=== PATIENT | female | born 1995 | race Caucasian/White ===

== ENCOUNTER 2018-11-15 04:39 | Emergency (ER) | payer MEDICAID ==
[2018-11-15 05:17] LABS: MUDS CUTOFF CONCENTRATIONS CUTOFF CONC BELOW:
[2018-11-15 05:20] LABS: BILIRUBIN,URINE NEGATIVE (NEGATIVE); GLUCOSE, URINE (UA) >=1000 mg/dL (NEGATIVE); KETONES,URINE (UA) NEGATIVE (NEGATIVE); LEUKOCYTE ESTERASE, URINE SMALL (NEGATIVE); NITRITE,URINE NEGATIVE (NEGATIVE); OCCULT BLOOD,URINE NEGATIVE (NEGATIVE); PROTEIN,URINE NEGATIVE (NEGATIVE); UROBILINOGEN,URINE 0.2 (NORMAL) E.U./dL (NORMAL)
[2018-11-15 05:21] LABS: CLARITY,URINE CLEAR (CLEAR); HCG UR QUAL NEGATIVE
--- NOTE | 2018-11-15 05:21 | ED Physician Documentation ---
PD [facility] MHE - Stated complaint Stated Complaint: MHE - Chief complaint Chief Complaint: MHE - History obtained from History obtained from: Patient - History of Present Illness Primary symptom: Suicidal ideation Similar symptoms before: Has not had sx before Recently seen: Not recently seen - Additional information Additional information: patient was at [place] and was texting to a crisis line; his texts included suicidal threats (specifically that he was going to jump off the bridge). Staff at crisis line contacted police, who were able to locate patient and, after discussion with patient, determined that he was a danger to self and brought patient to ED for evaluation. Patient confirms this information in HPI. He says he has been increasingly depressed over past few months due to the of his dog, a breakup with his boyfriend, and loss of his job. Review of Systems Cardiac: reports: Reviewed and negative Respiratory: reports: Reviewed and negative GI: reports: Reviewed and negative Psychiatric: reports: Depressed, Suicidal. denies: Homicidal, Hallucinations, Delusions, Anxiety PD PAST MEDICAL HISTORY - Past Medical History Past Medical History: No - Past Surgical History HEENT: Tonsil/Adenoidectomy - Present Medications Home Medications: Ambulatory Orders Medication Instructions Recorded Confirmed No Known Home Medications 11/15/18 11/15/18 - Allergies Allergies/Adverse Reactions: Allergies Allergy/AdvReac Type Severity Reaction Status Date / Time peanut Allergy Anaphylaxis Verified 11/15/18 04:51 - Social History Does the pt smoke?: No Smoking Status: Never smoker Does the pt drink ETOH?: Yes Does the pt have substance abuse?: No - Immunizations Immunizations are current?: Yes - POLST Patient has POLST: No PD ED PE NORMAL - Vitals Vital signs reviewed: Yes - General General: Alert and oriented X 3, No acute distress, Well developed/nourished - HEENT HEENT: PERRL, EOMI - Cardiac Cardiac: RRR, No murmur - Respiratory Respiratory: No respiratory distress, Clear bilaterally - Neuro Neuro: Alert and oriented X 3 Eye Opening: Spontaneous Motor: Obeys Commands Verbal: Oriented GCS Score: 15 - Psych Psych: Normal mood, Normal affect, Other (pleasant, calm, cooperative) Results - Vitals Vitals: Vital Signs - 24 hr 11/15/18 11/15/18 04:43 13:50 Temperature 36.1 C L Heart Rate 87 87 Respiratory 18 16 Rate Blood Pressure 140/83 H 143/76 H O2 Saturation 100 99 Oxygen O2 Source Room air - Labs Labs: Laboratory Tests 11/15/18 11/15/18 11/15/18 05:05 05:05 05:05 WBC RBC Hgb Hct MCV MCH MCHC RDW Plt Count MPV Neut # (Auto) Lymph # (Auto) [place] # (Auto) Eos # (Auto) Baso # (Auto) Absolute Nucleated RBC Nucleated RBC % Sodium Potassium Chloride Carbon Dioxide Anion Gap BUN Creatinine Estimated GFR (MDRD) Glucose Glycated Hemoglobin Estim Average Glucose Calcium Urine Color LT. YELLOW Urine Clarity CLEAR Urine pH 6.0 Ur Specific [place] 1.020 1.020 Urine Protein NEGATIVE Urine Glucose (UA) >=1000 H Urine Ketones NEGATIVE Urine Occult Blood NEGATIVE Urine Nitrite NEGATIVE Urine Bilirubin NEGATIVE Urine Urobilinogen 0.2 (NORMAL) Ur Leukocyte Esterase SMALL H Urine RBC 0-5 Urine WBC 4-5 Ur Squamous Epith Cells MANY Squamous H Urine Bacteria Rare Ur Microscopic Review INDICATED Urine Culture Comments NOT INDICATED Urine HCG, Qual NEGATIVE Salicylates Urine Opiates Screen NEGATIVE Ur Oxycodone Screen NEGATIVE Urine Methadone Screen NEGATIVE Ur Propoxyphene Screen NEGATIVE Acetaminophen Ur Barbiturates Screen NEGATIVE Ur Tricyclics Screen NEGATIVE Ur Phencyclidine Scrn NEGATIVE Ur Amphetamine Screen NEGATIVE U Methamphetamines Scrn NEGATIVE U Benzodiazepines Scrn NEGATIVE Urine Cocaine Screen NEGATIVE U Cannabinoids Screen NEGATIVE Ethyl Alcohol 11/15/18 11/15/18 11/15/18 05:55 05:55 05:55 WBC 9.1 RBC 4.64 Hgb 13.1 Hct 38.3 MCV 82.5 MCH 28.2 MCHC 34.2 RDW 13.4 Plt Count 267 MPV 8.4 Neut # (Auto) 6.7 H Lymph # (Auto) 1.8 [place] # (Auto) 0.5 Eos # (Auto) 0.0 Baso # (Auto) 0.0 Absolute Nucleated RBC 0.01 Nucleated RBC % 0.1 Sodium 137 Potassium 3.6 Chloride 104 Carbon Dioxide 23 Anion Gap 10.0 BUN 7 Creatinine 0.4 Estimated GFR (MDRD) 196 Glucose 215 H Glycated Hemoglobin 7.7 H Estim Average Glucose 174 H Calcium 9.0 Urine Color Urine Clarity Urine pH Ur Specific [place] Urine Protein Urine Glucose (UA) Urine Ketones Urine Occult Blood Urine Nitrite Urine Bilirubin Urine Urobilinogen Ur Leukocyte Esterase Urine RBC Urine WBC Ur Squamous Epith Cells Urine Bacteria Ur Microscopic Review Urine Culture Comments Urine HCG, Qual Salicylates < 6.0 Urine Opiates Screen Ur Oxycodone Screen Urine Methadone Screen Ur Propoxyphene Screen Acetaminophen < 10 L Ur Barbiturates Screen Ur Tricyclics Screen Ur Phencyclidine Scrn Ur Amphetamine Screen U Methamphetamines Scrn U Benzodiazepines Scrn Urine Cocaine Screen U Cannabinoids Screen Ethyl Alcohol < 5.0 PD MEDICAL DECISION MAKING - ED course Complexity details: reviewed results, re-evaluated patient, considered differential, d/w patient ED course: SW consulted in AM. case signed out to Dr. Juarez at end of my shift (7 AM) Departure - Departure Disposition: Home, Self Care Clinical Impression: Suicidal ideation, Hyperglycemia Condition: Good Instructions: ED Depression Follow-Up: [facility] [Provider Group] [facility] [Provider Group] Comments: The mental health specialist feels you are now safe to go home The [facility] program will be contacting you for ongoing support. You have the phone number for Jadekelli Ai in case you change your mind about wanting inpatient care And you have the number for the crisis line. Of course return to the ER if worse. Also you blood sugar was a little bit high today. I would like you to follow up with [facility] or [facility] for further evaluation to see if you might be developing diabetes - pleas make an appointment to be seen within the next 2 weeks Discharge Date/Time: 11/15/18 13:50
[2018-11-15 05:30] LABS: AMPHETAMINE SCREEN,URINE NEGATIVE (NEGATIVE); BACTERIA,URINE Rare /HPF (None Seen); BENZODIAZEPINES SCREEN, URINE NEGATIVE (NEGATIVE); COCAINE SCREEN URINE NEGATIVE (NEGATIVE); METHADONE SCREEN, URINE NEGATIVE (NEGATIVE); METHAMPHETAMINES SCREEN, URINE NEGATIVE (NEGATIVE); OPIATE SCREEN, URINE NEGATIVE (NEGATIVE); OXYCODONE SCREEN, URINE NEGATIVE (NEGATIVE); PROPOXYPHENE SCREEN, URINE NEGATIVE (NEGATIVE); RBC,URINE 0-5 /HPF (0-5); SQUAMOUS EPITHELIAL CELL,UR MANY Squamous (<= Few); TRICYCLIC ANTIDEPRESSANT,URINE NEGATIVE (NEGATIVE)
[2018-11-15 06:09] LABS: BASOPHILS % (AUTO) 0.5 %; EOSINOPHILS % (AUTO) 0.5 %; HGB - HEMOGLOBIN 13.1 g/dL (12.0-16.0); LYMPHOCYTES # (AUTO) 1.8 10^3/uL (1.5-3.5); LYMPHOCYTES % (AUTO) 19.7 %; MEAN CORPUSCULAR HEMOGLOBIN 28.2 pg (27.0-31.0); MEAN CORPUSCULAR HGB CONC 34.2 g/dL (32.0-36.0); MEAN CORPUSCULAR VOLUME 82.5 fL (81.0-99.0); MEAN PLATELET VOLUME 8.4 fL (7.9-10.8); MONOCYTES # (AUTO) 0.5 10^3/uL (0.0-1.0); MONOCYTES % (AUTO) 5.1 %; NEUTROPHILS # (AUTO) 6.7 10^3/uL (1.5-6.6); NEUTROPHILS % (AUTO) 74.2 %; PLT - PLATELET COUNT 267 10^3/uL (130-450); RED BLOOD COUNT 4.64 10^6/uL (4.20-5.40); RED CELL DISTRIBUTION WIDTH 13.4 % (12.0-15.0); WHITE BLOOD COUNT 9.1 x10^3/uL (4.8-10.8)
[2018-11-15 06:22] LABS: ACETAMINOPHEN < 10 ug/mL (10-30); BUN - BLOOD UREA NITROGEN 7 mg/dL (6-20); CARBON DIOXIDE - CO2 23 mmol/L (21-32); CHLORIDE 104 mmol/L (101-111); CREATININE 0.4 mg/dL (0.4-1.0); GFR - MDRD 196 (>89); GLUCOSE 215 mg/dL (70-100); SALICYLATE < 6.0 mg/dL; SODIUM 137 mmol/L (135-145)
--- NOTE | 2018-11-15 07:12 | ED Physician Documentation ---
History of Present Illness - Stated complaint Stated Complaint: MHE - Chief complaint Chief Complaint: MHE PD PAST MEDICAL HISTORY - Past Medical History Past Medical History: No - Past Surgical History HEENT: Tonsil/Adenoidectomy - Present Medications Home Medications: Ambulatory Orders Medication Instructions Recorded Confirmed No Known Home Medications 11/15/18 11/15/18 - Allergies Allergies/Adverse Reactions: Allergies Allergy/AdvReac Type Severity Reaction Status Date / Time peanut Allergy Anaphylaxis Verified 11/15/18 04:51 - Social History Does the pt smoke?: No Smoking Status: Never smoker Does the pt drink ETOH?: Yes Does the pt have substance abuse?: No - Immunizations Immunizations are current?: Yes - POLST Patient has POLST: No Results - Vitals Vitals: Vital Signs - 24 hr 11/15/18 04:43 Temperature 36.1 C L Heart Rate 87 Respiratory 18 Rate Blood Pressure 140/83 H O2 Saturation 100 Oxygen O2 Source Room air - Labs Labs: Laboratory Tests 11/15/18 11/15/18 11/15/18 05:05 05:05 05:05 WBC RBC Hgb Hct MCV MCH MCHC RDW Plt Count MPV Neut # (Auto) Lymph # (Auto) [place] # (Auto) Eos # (Auto) Baso # (Auto) Absolute Nucleated RBC Nucleated RBC % Sodium Potassium Chloride Carbon Dioxide Anion Gap BUN Creatinine Estimated GFR (MDRD) Glucose Glycated Hemoglobin Estim Average Glucose Calcium Urine Color LT. YELLOW Urine Clarity CLEAR Urine pH 6.0 Ur Specific [place] 1.020 1.020 Urine Protein NEGATIVE Urine Glucose (UA) >=1000 H Urine Ketones NEGATIVE Urine Occult Blood NEGATIVE Urine Nitrite NEGATIVE Urine Bilirubin NEGATIVE Urine Urobilinogen 0.2 (NORMAL) Ur Leukocyte Esterase SMALL H Urine RBC 0-5 Urine WBC 4-5 Ur Squamous Epith Cells MANY Squamous H Urine Bacteria Rare Ur Microscopic Review INDICATED Urine Culture Comments NOT INDICATED Urine HCG, Qual NEGATIVE Salicylates Urine Opiates Screen NEGATIVE Ur Oxycodone Screen NEGATIVE Urine Methadone Screen NEGATIVE Ur Propoxyphene Screen NEGATIVE Acetaminophen Ur Barbiturates Screen NEGATIVE Ur Tricyclics Screen NEGATIVE Ur Phencyclidine Scrn NEGATIVE Ur Amphetamine Screen NEGATIVE U Methamphetamines Scrn NEGATIVE U Benzodiazepines Scrn NEGATIVE Urine Cocaine Screen NEGATIVE U Cannabinoids Screen NEGATIVE Ethyl Alcohol 11/15/18 11/15/18 11/15/18 05:55 05:55 05:55 WBC 9.1 RBC 4.64 Hgb 13.1 Hct 38.3 MCV 82.5 MCH 28.2 MCHC 34.2 RDW 13.4 Plt Count 267 MPV 8.4 Neut # (Auto) 6.7 H Lymph # (Auto) 1.8 [place] # (Auto) 0.5 Eos # (Auto) 0.0 Baso # (Auto) 0.0 Absolute Nucleated RBC 0.01 Nucleated RBC % 0.1 Sodium 137 Potassium 3.6 Chloride 104 Carbon Dioxide 23 Anion Gap 10.0 BUN 7 Creatinine 0.4 Estimated GFR (MDRD) 196 Glucose 215 H Glycated Hemoglobin 7.7 H Estim Average Glucose 174 H Calcium 9.0 Urine Color Urine Clarity Urine pH Ur Specific [place] Urine Protein Urine Glucose (UA) Urine Ketones Urine Occult Blood Urine Nitrite Urine Bilirubin Urine Urobilinogen Ur Leukocyte Esterase Urine RBC Urine WBC Ur Squamous Epith Cells Urine Bacteria Ur Microscopic Review Urine Culture Comments Urine HCG, Qual Salicylates < 6.0 Urine Opiates Screen Ur Oxycodone Screen Urine Methadone Screen Ur Propoxyphene Screen Acetaminophen < 10 L Ur Barbiturates Screen Ur Tricyclics Screen Ur Phencyclidine Scrn Ur Amphetamine Screen U Methamphetamines Scrn U Benzodiazepines Scrn Urine Cocaine Screen U Cannabinoids Screen Ethyl Alcohol < 5.0 PD MEDICAL DECISION MAKING - ED course ED course: assumed care 7 AM 23 bio female identifies male suicidal ideation with plan [place] in [place] police with [facility] no homicidal ideations no hallucinations numerous recent losses (boyfriend deployed lost dog lost car lost job) otherwise well recently no fever cough NVD 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 except blood sugar 215 and large glucose in urine with no hx of diabetes if not on steroids etc to cause same would suggest start metformin 500 BID and close PMD follow up but would not preclude inpt mental health care waiting for SW consult seen by RICHARD but no longer wanted inpt care so then seen by BRENDA GUTIERREZ does not feel pt need invol placement at this time, he does not want to go voluntary at this time, has been referred to [facility] for home visit, DCR spoke to pts friend who will provide support, has crisis and number for [place] if he changes his mind, also to be added to parents health insurance A1C only 7.7 - will refer to PMD but not start meds at this time Departure - Departure Disposition: 01 Home, Self Care Clinical Impression: Suicidal ideation, Hyperglycemia Condition: Good Instructions: ED Depression Follow-Up: [facility] [Provider Group] [facility] [Provider Group] Comments: The mental health specialist feels you are now safe to go home The [facility] program will be contacting you for ongoing support. You have the phone number for Clemente Cloud in case you change your mind about wanting inpatient care And you have the number for the crisis line. Of course return to the ER if worse. Also you blood sugar was a little bit high today. I would like you to follow up with [facility] or [facility] for further evaluation to see if you might be developing diabetes - pleas make an appointment to be seen within the next 2 weeks
[2018-11-15 08:24] LABS: HB2 TOTAL 13.8 g/dL; HEMOGLOBIN A1C 0.84 g/dL; HEMOGLOBIN A1C % 7.7 % (4.6-6.2)
[2018-11-15] MEDS ORDERED: ACETAMINOPHEN 325 MG TABLET PO STA (12:44)
[2018-11-15 13:51] VITALS: BP 143/76
== END 2018-11-15 13:50 | disposition home or self-care (01) ==
LOC: ED 04:39
DX: R45.851 Suicidal ideations (principal); R73.9 Hyperglycemia, unspecified; F64.9 Gender identity disorder, unspecified
CPT/HCPCS: 36415; 80048; 80306; 80307; 80320; 80329; 81001; 81025; 83036; 85025; 99283; 99284; A9270; 81003; 87086

== ENCOUNTER 2019-06-01 03:25 | Emergency (ER) | payer OTHER, MEDICAID ==
--- NOTE | 2019-06-01 03:47 | ED Physician Documentation ---
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 He recognized he had cut deep enough to require stitches and thus comes to ED for repair. He denies suicidal intent. Review of Systems Skin: reports: Laceration (s) Neurologic: denies: Focal weakness, Numbness Psychiatric: denies: Suicidal PD PAST MEDICAL HISTORY - Past Medical History Past Medical History: Yes Psych: Depression - Past Surgical History HEENT: Tonsil/Adenoidectomy - Present Medications Home Medications: Ambulatory Orders Medication Instructions Recorded Confirmed Sertraline HCl [Zoloft] 100 mg PO DAILY 06/01/19 06/01/19 - Allergies Allergies/Adverse Reactions: Allergies Allergy/AdvReac Type Severity Reaction Status Date / Time peanut Allergy Anaphylaxis Verified 06/01/19 03:35 - Living Situation Living Arrangement: reports: At home - Social History Does the pt smoke?: No Smoking Status: Never smoker Does the pt drink ETOH?: Yes Does the pt have substance abuse?: No - Immunizations Immunizations are current?: Yes - POLST Patient has POLST: No PD ED PE NORMAL - Vitals Vital signs reviewed: Yes - General General: Alert and oriented X 3, No acute distress, Well developed/nourished - Neuro Neuro: No motor deficit, No sensory deficit PD ED PE EXPANDED - Extremities NEMESIO UE/Hands Visual: 1 - laceration (7 cm length laceration with exposed adipose tissue. multiple old (healing) linear lacerations on left forearm) Results - Vitals Vitals: Oxygen O2 Source Room air - Labs Labs: Laboratory Tests 06/01/19 06/01/19 06/01/19 03:53 03:53 03:53 WBC 7.1 RBC 4.43 Hgb 11.8 L Hct 36.7 L MCV 82.8 MCH 26.6 L MCHC 32.2 RDW 13.6 Plt Count 285 MPV 10.4 Neut # (Auto) 4.4 Lymph # (Auto) 2.1 [place] # (Auto) 0.5 Eos # (Auto) 0.1 Baso # (Auto) 0.0 Absolute Nucleated RBC 0.00 Nucleated RBC % 0.0 Sodium 138 Potassium 3.6 Chloride 104 Carbon Dioxide 23 Anion Gap 11.0 BUN 14 Creatinine 0.6 Estimated GFR (MDRD) 122 Glucose 182 H Calcium 9.3 TSH 3.84 Urine Color Urine Clarity Urine pH Ur Specific [place] Urine Protein Urine Glucose (UA) Urine Ketones Urine Occult Blood Urine Nitrite Urine Bilirubin Urine Urobilinogen Ur Leukocyte Esterase Ur Microscopic Review Urine Culture Comments Urine HCG, Qual Salicylates < 4.0 Urine Opiates Screen Ur Oxycodone Screen Urine Methadone Screen Ur Propoxyphene Screen Acetaminophen < 10 L Ur Barbiturates Screen Ur Tricyclics Screen Ur Phencyclidine Scrn Ur Amphetamine Screen U Methamphetamines Scrn U Benzodiazepines Scrn Urine Cocaine Screen U Cannabinoids Screen Ethyl Alcohol < 5.0 06/01/19 06/01/19 04:35 04:35 WBC RBC Hgb Hct MCV MCH MCHC RDW Plt Count MPV Neut # (Auto) Lymph # (Auto) [place] # (Auto) Eos # (Auto) Baso # (Auto) Absolute Nucleated RBC Nucleated RBC % Sodium Potassium Chloride Carbon Dioxide Anion Gap BUN Creatinine Estimated GFR (MDRD) Glucose Calcium TSH Urine Color YELLOW Urine Clarity CLEAR Urine pH 6.0 Ur Specific [place] 1.010 Urine Protein NEGATIVE Urine Glucose (UA) NEGATIVE Urine Ketones NEGATIVE Urine Occult Blood NEGATIVE Urine Nitrite NEGATIVE Urine Bilirubin NEGATIVE Urine Urobilinogen 0.2 (NORMAL) Ur Leukocyte Esterase NEGATIVE Ur Microscopic Review NOT INDICATED Urine Culture Comments NOT INDICATED Urine HCG, Qual NEGATIVE Salicylates Urine Opiates Screen NEGATIVE Ur Oxycodone Screen NEGATIVE Urine Methadone Screen NEGATIVE Ur Propoxyphene Screen NEGATIVE Acetaminophen Ur Barbiturates Screen NEGATIVE Ur Tricyclics Screen NEGATIVE Ur Phencyclidine Scrn NEGATIVE Ur Amphetamine Screen NEGATIVE U Methamphetamines Scrn NEGATIVE U Benzodiazepines Scrn NEGATIVE Urine Cocaine Screen NEGATIVE U Cannabinoids Screen NEGATIVE Ethyl Alcohol Procedures - Laceration (location) Upper extremity left Ventral Length in cm: 7 Wound type: Linear Neurovascular status: Sensory intact, Motor intact, Vascular intact Tendon involvement: Tendon intact Anesthesia: Lidocaine 1% Wound Preparation: Hibiclens, Wound explored Skin layer closure: Randy Other: Patient tolerated well, No complications, Neurovascular intact, Dressing applied, Tetanus UTD Complexity: Simple PD MEDICAL DECISION MAKING - ED course Complexity details: reviewed old records, reviewed results, re-evaluated patient, considered differential, d/w patient ED course: Calm, cooperative, pleasant during ED stay. He says he has been dealing with d epression for many months and that elsy's self-injury was not due to acute depression or suicidal thoughts or intent. He has multiple old/healing linear lacerations to his left FA, indicating previous "cutting" behavior. I offered SW/MHE services, which he declines. He says he feels comfortable going home and does not have any suicidal thoughts at this time. Departure - Departure Disposition: 01 Home, Self Care Clinical Impression: Laceration Condition: Good Health Concerns: left arm laceration Plan of Treatment: wound care, staple removal in 7-10 days Care Goals: healing of laceration Assessment: see diagnosis Instructions: ED Laceration Ext Sutr Stap Tape Comments: Follow up with your primary care provider in 7-10 days for removal of the randy. Discharge Date/Time: 06/01/19 05:31
[2019-06-01 04:09] LABS: BASOPHILS % (AUTO) 0.3 %; EOSINOPHILS # (AUTO) 0.1 10^3/uL (0.0-0.7); EOSINOPHILS % (AUTO) 1.8 %; HGB - HEMOGLOBIN 11.8 g/dL (12.0-16.0); LYMPHOCYTES # (AUTO) 2.1 10^3/uL (1.5-3.5); LYMPHOCYTES % (AUTO) 29.1 %; MEAN CORPUSCULAR HEMOGLOBIN 26.6 pg (27.0-31.0); MEAN CORPUSCULAR HGB CONC 32.2 g/dL (32.0-36.0); MEAN CORPUSCULAR VOLUME 82.8 fL (81.0-99.0); MEAN PLATELET VOLUME 10.4 fL (7.9-10.8); MONOCYTES # (AUTO) 0.5 10^3/uL (0.0-1.0); MONOCYTES % (AUTO) 7.2 %; NEUTROPHILS # (AUTO) 4.4 10^3/uL (1.5-6.6); NEUTROPHILS % (AUTO) 61.5 %; PLT - PLATELET COUNT 285 10^3/uL (130-450); RED BLOOD COUNT 4.43 10^6/uL (4.20-5.40); RED CELL DISTRIBUTION WIDTH 13.6 % (12.0-15.0); WHITE BLOOD COUNT 7.1 x10^3/uL (4.8-10.8)
[2019-06-01] MEDS ORDERED: LIDOCAINE 1% 2 ML VIAL SUBQ STA (04:18)
[2019-06-01 04:28] LABS: BUN - BLOOD UREA NITROGEN 14 mg/dL (6-20); CALCIUM 9.3 mg/dL (8.5-10.3); CARBON DIOXIDE - CO2 23 mmol/L (21-32); CHLORIDE 104 mmol/L (101-111); CREATININE 0.6 mg/dL (0.4-1.0); GFR - MDRD 122 (>89); GLUCOSE 182 mg/dL (70-100); SODIUM 138 mmol/L (135-145)
[2019-06-01 04:29] LABS: ACETAMINOPHEN < 10 ug/mL (10-30); SALICYLATE < 4.0 mg/dL
[2019-06-01 04:54] LABS: BILIRUBIN,URINE NEGATIVE (NEGATIVE); GLUCOSE, URINE (UA) NEGATIVE (NEGATIVE); KETONES,URINE (UA) NEGATIVE (NEGATIVE); LEUKOCYTE ESTERASE, URINE NEGATIVE (NEGATIVE); NITRITE,URINE NEGATIVE (NEGATIVE); OCCULT BLOOD,URINE NEGATIVE (NEGATIVE); PROTEIN,URINE NEGATIVE (NEGATIVE); UROBILINOGEN,URINE 0.2 (NORMAL) E.U./dL (NORMAL)
[2019-06-01 04:56] LABS: CLARITY,URINE CLEAR (CLEAR); HCG UR QUAL NEGATIVE
[2019-06-01 05:03] LABS: AMPHETAMINE SCREEN,URINE NEGATIVE (NEGATIVE); BENZODIAZEPINES SCREEN, URINE NEGATIVE (NEGATIVE); COCAINE SCREEN URINE NEGATIVE (NEGATIVE); METHADONE SCREEN, URINE NEGATIVE (NEGATIVE); METHAMPHETAMINES SCREEN, URINE NEGATIVE (NEGATIVE); MUDS CUTOFF CONCENTRATIONS CUTOFF CONC BELOW:; OPIATE SCREEN, URINE NEGATIVE (NEGATIVE); OXYCODONE SCREEN, URINE NEGATIVE (NEGATIVE); PROPOXYPHENE SCREEN, URINE NEGATIVE (NEGATIVE); TRICYCLIC ANTIDEPRESSANT,URINE NEGATIVE (NEGATIVE)
[2019-06-01 05:26] VITALS: BP 124/57
== END 2019-06-01 05:31 | disposition home or self-care (01) ==
LOC: ED 03:25
DX: S51.812A Laceration without foreign body of left forearm, initial encounter (principal); X78.8XXA Intentional self-harm by other sharp object, initial encounter
CPT/HCPCS: 12002; 36415; 80048; 80306; 80307; 80320; 80329; 81001; 81003; 81025; 84443; 85025; 87086; 99283

== ENCOUNTER 2019-06-06 18:34 | Emergency (ER) | payer MEDICAID, OTHER ==
[2019-06-06 18:49] VITALS: BP 133/77
--- NOTE | 2019-06-06 18:55 | ED Physician Documentation ---
History of Present Illness - Stated complaint Stated Complaint: STAPLE REMOVAL - Chief complaint Chief Complaint: Ext Problem - History obtained from History obtained from: Patient - Additonal information Additional information: Patient is a 24-year-old female presenting with request for staple removal and that were placed initially about 5 days ago in this ED. Patient had self- inflicted wound to the ventral left forearm that was repaired with multiple randy. Patient reports pain, swelling, redness, drainage to the area, but denies significant change in sensation, strength, range of motion to the left arm. Patient denies any recent cutting behavior since the last ED visit, as well as any worsening symptoms of depression, hallucinations, paranoia, suicidal thoughts, homicidal thoughts. No other complaints. No improving or worsening factors noted. Review of Systems Constitutional: denies: Fever Skin: reports: Laceration (s) Musculoskeletal: reports: Extremity pain. denies: Joint pain, Extremity swelling, Joint swelling Neurologic: denies: Focal weakness, Numbness PD PAST MEDICAL HISTORY - Past Medical History Past Medical History: Yes Psych: Depression - Past Surgical History Past Surgical History: Yes HEENT: Tonsil/Adenoidectomy - Present Medications Home Medications: Ambulatory Orders Medication Instructions Recorded Confirmed Sertraline HCl [Zoloft] 100 mg PO DAILY 06/01/19 06/06/19 Cephalexin [Keflex] 500 mg PO Q6H #28 capsule 06/06/19 Sulfamethox/Trimeth 800/160 1 each PO BID #14 tablet 06/06/19 [Bactrim Ds 800/160] - Allergies Allergies/Adverse Reactions: Allergies Allergy/AdvReac Type Severity Reaction Status Date / Time peanut Allergy Anaphylaxis Verified 06/06/19 18:49 - Social History Does the pt smoke?: No Smoking Status: Never smoker Does the pt drink ETOH?: Yes Does the pt have substance abuse?: No - Immunizations Immunizations are current?: Yes - POLST Patient has POLST: No PD ED PE NORMAL - Vitals Vital signs reviewed: Yes - General General: Alert and oriented X 3, No acute distress, Well developed/nourished - HEENT HEENT: Atraumatic, Moist mucous membranes - Cardiac Cardiac: Strong equal pulses - Respiratory Respiratory: No respiratory distress - Derm Derm: Other (Healing wound to the left ventral forearm with many randy in place with surrounding erythema, induration, warmth, but no drainage. Tender to the touch. Patient also has multiple healing or healed scars on this arm and other locations as well.) - Extremities Extremities: No deformity. No: No tenderness to palpate (Tender to palpation of the laceration only. Left upper extremity otherwise within normal limits.) - Neuro Neuro: Alert and oriented X 3, No motor deficit, No sensory deficit - Psych Psych: Normal mood, Normal affect Results - Vitals Vitals: Vital Signs - 24 hr 06/06/19 18:47 Temperature 36.7 C Heart Rate 80 Respiratory 16 Rate Blood Pressure 133/77 H O2 Saturation 99 Oxygen O2 Source Room air PD MEDICAL DECISION MAKING - ED course Complexity details: reviewed old records, considered differential, d/w patient ED course: Patient presenting requesting removal of randy and is aware that removing today is somewhat less appealing than at 7 to 10 days as originally instructed, however, due to pain and other complications, feel that it is appropriate to fill this request. Did discuss the possibility of wound dehiscence. Given the additional concern for wound infection, prescribed antibiotics. Discussed wound care, use of medications, supportive cares, return precautions, and follow-up. Patient voiced understanding and is comfortable with discharge plan. Additionally, do not have concern for other injuries, suicidal thoughts, psychiatric illness that would require emergent evaluation or hospitalization at this time. Departure - Departure Disposition: 01 Home, Self Care Clinical Impression: Removal of staple Cellulitis Qualifiers: Site of cellulitis: extremity Site of cellulitis of extremity: upper extremity Laterality: left Qualified Code(s): L03.114 - Cellulitis of left upper limb Condition: Good Instructions: ED Infec Skin Cellulitis Follow-Up: your,doctor [Other] - Within 3 Days Prescriptions: Cephalexin [Keflex] 500 mg PO Q6H #28 capsule Sulfamethox/Trimeth 800/160 [Bactrim Ds 800/160] 1 each PO BID #14 tablet Comments: Please be gentle with the arms was not to reopen the wound. Please keep wound clean and dry using running water and soap only. Do not submerge underwater. Do not need to apply anything topically. Please take antibiotics as prescribed to help with skin infection. Follow-up with primary care physician in next 2 to 3 days and return to ED sooner if experience worsening symptoms or have other concerns.
== END 2019-06-06 19:25 | disposition home or self-care (01) ==
LOC: ED 18:34
DX: S51.812D Laceration without foreign body of left forearm, subsequent encounter (principal); L03.114 Cellulitis of left upper limb; X78.9XXD Intentional self-harm by unspecified sharp object, subsequent encounter
CPT/HCPCS: 99282; 99283

== ENCOUNTER 2019-07-13 05:42 | Emergency (ER) | payer MEDICAID ==
[2019-07-13] MEDS ORDERED: BUFFERED LIDOCAINE 10 ML SYRINGE SUBQ STA (06:12)
[2019-07-13 06:13] LABS: BASOPHILS % (AUTO) 0.4 %; EOSINOPHILS # (AUTO) 0.2 10^3/uL (0.0-0.7); HGB - HEMOGLOBIN 12.2 g/dL (12.0-16.0); LYMPHOCYTES # (AUTO) 2.1 10^3/uL (1.5-3.5); LYMPHOCYTES % (AUTO) 27.8 %; MEAN CORPUSCULAR HEMOGLOBIN 26.4 pg (27.0-31.0); MEAN CORPUSCULAR HGB CONC 31.6 g/dL (32.0-36.0); MEAN CORPUSCULAR VOLUME 83.5 fL (81.0-99.0); MEAN PLATELET VOLUME 10.8 fL (7.9-10.8); MONOCYTES # (AUTO) 0.5 10^3/uL (0.0-1.0); MONOCYTES % (AUTO) 6.1 %; NEUTROPHILS # (AUTO) 4.9 10^3/uL (1.5-6.6); NEUTROPHILS % (AUTO) 63.4 %; PLT - PLATELET COUNT 288 10^3/uL (130-450); RED BLOOD COUNT 4.62 10^6/uL (4.20-5.40); RED CELL DISTRIBUTION WIDTH 13.7 % (12.0-15.0); WHITE BLOOD COUNT 7.7 x10^3/uL (4.8-10.8)
--- NOTE | 2019-07-13 06:13 | ED Physician Documentation ---
PD HPI LOWER EXT INJURY - Stated complaint Stated Complaint: KNEE LAC - Chief complaint Chief Complaint: Laceration - History obtained from History obtained from: Patient - History of Present Illness PD HPI LOW EXT INJURY LOCATION: Left, Upper leg Type of injury: Laceration Where injury occurred: Home Timing - onset: Today Timing - duration: Minutes Timing - details: Abrupt onset, Still present Improved by: Rest Worsened by: Moving, Palpating Associated symptoms: No: Weakness, Numbness, Tingling, Swelling Similar symptoms before: Diagnosis (self inflicted laceration) Recently seen: Not recently seen - Additional information Additional information: 24 y/o transitioning to male has cut on his leg this morning and comes in now for suturing. He indicates he "just got carried away" and "forgot what he was doing" lacerating the left thigh with a 10cm laceration that gapes about 1cm. He has an appointment to see his counsellor in 2 days and he is "not worried" about an inpatient stay for help. Review of Systems Constitutional: denies: Fever Eyes: denies: Decreased vision Ears: denies: Ear pain Nose: denies: Congestion Throat: denies: Sore throat Cardiac: denies: Chest pain / pressure Respiratory: denies: Dyspnea, Cough GI: denies: Vomiting Skin: reports: Laceration (s) PD PAST MEDICAL HISTORY - Past Medical History Psych: Depression - Past Surgical History Past Surgical History: Yes HEENT: Tonsil/Adenoidectomy - Present Medications Home Medications: Ambulatory Orders Medication Instructions Recorded Confirmed Sertraline HCl [Zoloft] 100 mg PO DAILY 06/01/19 06/06/19 Cephalexin [Keflex] 500 mg PO Q6H #28 capsule 06/06/19 Sulfamethox/Trimeth 800/160 1 each PO BID #14 tablet 06/06/19 [Bactrim Ds 800/160] - Allergies Allergies/Adverse Reactions: Allergies Allergy/AdvReac Type Severity Reaction Status Date / Time peanut Allergy Anaphylaxis Verified 06/06/19 18:49 - Social History Does the pt smoke?: No Smoking Status: Never smoker Does the pt drink ETOH?: Yes Does the pt have substance abuse?: No - Immunizations Immunizations are current?: Yes - POLST Patient has POLST: No PD ED PE NORMAL - Vitals Vital signs reviewed: Yes (normal ) - General General: Alert and oriented X 3, No acute distress, Well developed/nourished - HEENT HEENT: Atraumatic, PERRL, EOMI, Other (bearded male in no distress with a normal affect.) - Neck Neck: Supple, no meningeal sign, No bony TTP - Respiratory Respiratory: No respiratory distress - Derm Derm: Normal color, Warm and dry, No rash - Extremities Extremities: No deformity, No edema, No calf tenderness / cord, Other (There is a 10cm laceration over the mid anterior thigh through a tatoo of a rainbow- barbedwire. This does not involve deeper structures and does not entirely penetrate the dermis. The wound gapes about 1cm. ) - Neuro Neuro: Alert and oriented X 3, seo analyst 2-12 intact, No motor deficit, No sensory deficit, Normal speech Eye Opening: Spontaneous Motor: Obeys Commands Verbal: Oriented GCS Score: 15 - Psych Psych: Normal mood, Normal affect Results - Vitals Vitals: Vital Signs - 24 hr 07/13/19 05:48 Temperature 36 C L Heart Rate 84 Respiratory 22 Rate Blood Pressure 120/79 O2 Saturation 100 Oxygen O2 Source Room air - Labs Labs: Laboratory Tests 07/13/19 07/13/19 07/13/19 06:00 06:00 06:52 WBC 7.7 RBC 4.62 Hgb 12.2 Hct 38.6 MCV 83.5 MCH 26.4 L MCHC 31.6 L RDW 13.7 Plt Count 288 MPV 10.8 Neut # (Auto) 4.9 Lymph # (Auto) 2.1 [place] # (Auto) 0.5 Eos # (Auto) 0.2 Baso # (Auto) 0.0 Absolute Nucleated RBC 0.00 Nucleated RBC % 0.0 Sodium 140 Potassium 3.8 Chloride 104 Carbon Dioxide 24 Anion Gap 12.0 BUN 11 Creatinine 0.6 Estimated GFR (MDRD) 122 Glucose 235 H Calcium 9.8 Ur Specific [place] 1.015 Urine HCG, Qual NEGATIVE Urine Opiates Screen Ur Oxycodone Screen Urine Methadone Screen Ur Propoxyphene Screen Ur Barbiturates Screen Ur Tricyclics Screen Ur Phencyclidine Scrn Ur Amphetamine Screen U Methamphetamines Scrn U Benzodiazepines Scrn Urine Cocaine Screen U Cannabinoids Screen Ethyl Alcohol < 5.0 07/13/19 06:52 WBC RBC Hgb Hct MCV MCH MCHC RDW Plt Count MPV Neut # (Auto) Lymph # (Auto) [place] # (Auto) Eos # (Auto) Baso # (Auto) Absolute Nucleated RBC Nucleated RBC % Sodium Potassium Chloride Carbon Dioxide Anion Gap BUN Creatinine Estimated GFR (MDRD) Glucose Calcium Ur Specific [place] Urine HCG, Qual Urine Opiates Screen NEGATIVE Ur Oxycodone Screen NEGATIVE Urine Methadone Screen NEGATIVE Ur Propoxyphene Screen NEGATIVE Ur Barbiturates Screen NEGATIVE Ur Tricyclics Screen NEGATIVE Ur Phencyclidine Scrn NEGATIVE Ur Amphetamine Screen NEGATIVE U Methamphetamines Scrn NEGATIVE U Benzodiazepines Scrn NEGATIVE Urine Cocaine Screen NEGATIVE U Cannabinoids Screen NEGATIVE Ethyl Alcohol Procedures - Laceration (location) left thigh Length in cm: 10 Wound type: Linear, Clean Neurovascular status: Sensory intact, Motor intact, Vascular intact Anesthesia: Lidocaine 1%, With bicarb Wound Preparation: Hibiclens, Irrigated copiously NS, Wound explored, To the base Skin layer closure: Nylon, Interrupted, Size #-0 - enter number (4-0) Other: Patient tolerated well, No complications, Neurovascular intact, Dressing applied, Tetanus UTD Complexity: Simple PD MEDICAL DECISION MAKING - ED course Complexity details: reviewed old records, reviewed results, re-evaluated patient, considered differential, d/w patient ED course: 24-year-old transitioning male with a laceration to his left thigh that is self- induced. He is not currently suicidal and he does not feel inpatient treatment is needed. He will be evaluated by social insurance administrator today. Departure - Departure Clinical Impression: Injury, self-inflicted Laceration of left thigh Qualifiers: Encounter type: initial encounter Qualified Code(s): S71.112A - Laceration without foreign body, left thigh, initial encounter Instructions: ED Stress React, ED Laceration Ext Sutr Stap Tape Follow-Up: David Moran MD [Provider Admit Priv/Credential] - Comments: Sutures will need to be removed in 10 days
[2019-07-13 06:23] LABS: BUN - BLOOD UREA NITROGEN 11 mg/dL (6-20); CALCIUM 9.8 mg/dL (8.5-10.3); CARBON DIOXIDE - CO2 24 mmol/L (21-32); CHLORIDE 104 mmol/L (101-111); CREATININE 0.6 mg/dL (0.4-1.0); GFR - MDRD 122 (>89); GLUCOSE 235 mg/dL (70-100); SODIUM 140 mmol/L (135-145)
[2019-07-13 07:05] LABS: HCG UR QUAL NEGATIVE
[2019-07-13 07:07] LABS: MUDS CUTOFF CONCENTRATIONS CUTOFF CONC BELOW:
[2019-07-13 07:14] LABS: AMPHETAMINE SCREEN,URINE NEGATIVE (NEGATIVE); BENZODIAZEPINES SCREEN, URINE NEGATIVE (NEGATIVE); COCAINE SCREEN URINE NEGATIVE (NEGATIVE); METHADONE SCREEN, URINE NEGATIVE (NEGATIVE); METHAMPHETAMINES SCREEN, URINE NEGATIVE (NEGATIVE); OPIATE SCREEN, URINE NEGATIVE (NEGATIVE); OXYCODONE SCREEN, URINE NEGATIVE (NEGATIVE); PROPOXYPHENE SCREEN, URINE NEGATIVE (NEGATIVE); TRICYCLIC ANTIDEPRESSANT,URINE NEGATIVE (NEGATIVE)
[2019-07-13 08:37] VITALS: BP 129/72
== END 2019-07-13 08:35 | disposition home or self-care (01) ==
LOC: ED 05:42
DX: S71.112A Laceration without foreign body, left thigh, initial encounter (principal); X78.9XXA Intentional self-harm by unspecified sharp object, initial encounter; Y92.009 Unspecified place in unspecified non-institutional (private) residence as the place of occurrence of the external cause
CPT/HCPCS: 12004; 36415; 80048; 80306; 80320; 81025; 85025; 99283

== ENCOUNTER 2019-08-01 15:46 | Emergency (ER) | payer MEDICAID ==
[2019-08-01 16:07] VITALS: BP 118/84
--- NOTE | 2019-08-01 16:21 | ED Physician Documentation ---
PD HPI MHE - Stated complaint Stated Complaint: SI - Chief complaint Chief Complaint: MHE - History obtained from History obtained from: Patient - History of Present Illness Primary symptom: Suicidal ideation (24-year-old with chronic depression with subacute suicidal ideation that is worse today with plan. Here requesting voluntary hospitalization. No other health problems. No drug abuse.) Review of Systems Ten Systems: 10 systems reviewed and negative Constitutional: reports: Reviewed and negative Cardiac: reports: Reviewed and negative Respiratory: reports: Reviewed and negative PD PAST MEDICAL HISTORY - Past Medical History Past Medical History: Yes Psych: Depression - Past Surgical History Past Surgical History: Yes HEENT: Tonsil/Adenoidectomy - Present Medications Home Medications: Ambulatory Orders Medication Instructions Recorded Confirmed Sertraline HCl [Zoloft] 100 mg PO DAILY 06/01/19 06/06/19 Cephalexin [Keflex] 500 mg PO Q6H #28 capsule 06/06/19 Sulfamethox/Trimeth 800/160 1 each PO BID #14 tablet 06/06/19 [Bactrim Ds 800/160] - Allergies Allergies/Adverse Reactions: Allergies Allergy/AdvReac Type Severity Reaction Status Date / Time peanut Allergy Anaphylaxis Verified 08/01/19 15:58 - Social History Does the pt smoke?: No Smoking Status: Never smoker Does the pt drink ETOH?: Yes Does the pt have substance abuse?: No - Family History Family history: reports: Non contributory - Immunizations Immunizations are current?: Yes - POLST Patient has POLST: No PD ED PE NORMAL - Vitals Vital signs reviewed: Yes - General General: Alert and oriented X 3, No acute distress - HEENT HEENT: PERRL, EOMI - Neck Neck: Supple, no meningeal sign, No bony TTP - Cardiac Cardiac: RRR, No murmur - Respiratory Respiratory: No respiratory distress, Clear bilaterally - Abdomen Abdomen: Soft, Non tender - Back Back: No CVA TTP, No spinal TTP - Derm Derm: Normal color, Warm and dry - Extremities Extremities: No edema, No calf tenderness / cord - Neuro Neuro: Alert and oriented X 3, Normal speech - Psych Psych: Normal mood, Normal affect Results - Vitals Vitals: Vital Signs - 24 hr 08/01/19 15:58 Temperature 36.5 C Heart Rate 86 Respiratory 16 Rate Blood Pressure 118/84 H O2 Saturation 98 Oxygen O2 Source Room air - Labs Labs: Laboratory Tests 08/01/19 08/01/19 08/01/19 16:24 16:24 16:43 WBC 7.2 RBC 4.68 Hgb 12.2 Hct 38.4 MCV 82.1 MCH 26.1 L MCHC 31.8 L RDW 13.6 Plt Count 304 MPV 10.5 Neut # (Auto) 5.0 Lymph # (Auto) 1.7 [place] # (Auto) 0.4 Eos # (Auto) 0.1 Baso # (Auto) 0.0 Absolute Nucleated RBC 0.00 Nucleated RBC % 0.0 Sodium Potassium Chloride Carbon Dioxide Anion Gap BUN Creatinine Estimated GFR (MDRD) Glucose Calcium Total Bilirubin AST ALT Alkaline Phosphatase Total Protein Albumin Globulin Albumin/Globulin Ratio Lipase TSH Urine Color YELLOW Urine Clarity CLEAR Urine pH 6.0 Ur Specific [place] 1.010 Urine Protein NEGATIVE Urine Glucose (UA) 500 H Urine Ketones NEGATIVE Urine Occult Blood NEGATIVE Urine Nitrite NEGATIVE Urine Bilirubin NEGATIVE Urine Urobilinogen 0.2 (NORMAL) Ur Leukocyte Esterase NEGATIVE Ur Microscopic Review NOT INDICATED Urine Culture Comments NOT INDICATED Urine HCG, Qual NEGATIVE Salicylates Urine Opiates Screen NEGATIVE Ur Oxycodone Screen NEGATIVE Urine Methadone Screen NEGATIVE Ur Propoxyphene Screen NEGATIVE Acetaminophen Ur Barbiturates Screen NEGATIVE Ur Tricyclics Screen NEGATIVE Ur Phencyclidine Scrn NEGATIVE Ur Amphetamine Screen NEGATIVE U Methamphetamines Scrn NEGATIVE U Benzodiazepines Scrn NEGATIVE Urine Cocaine Screen NEGATIVE U Cannabinoids Screen NEGATIVE Ethyl Alcohol 08/01/19 08/01/19 16:43 16:43 WBC RBC Hgb Hct MCV MCH MCHC RDW Plt Count MPV Neut # (Auto) Lymph # (Auto) [place] # (Auto) Eos # (Auto) Baso # (Auto) Absolute Nucleated RBC Nucleated RBC % Sodium 139 Potassium 3.7 Chloride 103 Carbon Dioxide 25 Anion Gap 11.0 BUN 11 Creatinine 0.6 Estimated GFR (MDRD) 122 Glucose 178 H Calcium 9.7 Total Bilirubin 0.6 AST 19 ALT 33 Alkaline Phosphatase 83 Total Protein 8.2 Albumin 4.5 Globulin 3.7 Albumin/Globulin Ratio 1.2 Lipase 23 TSH 1.39 Urine Color Urine Clarity Urine pH Ur Specific [place] Urine Protein Urine Glucose (UA) Urine Ketones Urine Occult Blood Urine Nitrite Urine Bilirubin Urine Urobilinogen Ur Leukocyte Esterase Ur Microscopic Review Urine Culture Comments Urine HCG, Qual Salicylates < 6.0 Urine Opiates Screen Ur Oxycodone Screen Urine Methadone Screen Ur Propoxyphene Screen Acetaminophen < 10 L Ur Barbiturates Screen Ur Tricyclics Screen Ur Phencyclidine Scrn Ur Amphetamine Screen U Methamphetamines Scrn U Benzodiazepines Scrn Urine Cocaine Screen U Cannabinoids Screen Ethyl Alcohol 9.6 PD MEDICAL DECISION MAKING - ED course ED course: Presents with his [place] social security specialist/counselor and seen by our social security specialist as well. He is no longer suicidal and a safety plan was formulated. He prefers outpatient treatment. Contracts for safety. Departure - Departure Disposition: Home, Self Care Clinical Impression: Depression Condition: Good Record reviewed to determine appropriate education?: Yes Instructions: ED Depression Comments: See her therapist on Sunday as scheduled. A safety check will be done tomorrow. Return for new or worsening symptoms.
[2019-08-01 16:38] LABS: MUDS CUTOFF CONCENTRATIONS CUTOFF CONC BELOW:
[2019-08-01 16:42] LABS: BILIRUBIN,URINE NEGATIVE (NEGATIVE); GLUCOSE, URINE (UA) 500 mg/dL (NEGATIVE); KETONES,URINE (UA) NEGATIVE (NEGATIVE); LEUKOCYTE ESTERASE, URINE NEGATIVE (NEGATIVE); NITRITE,URINE NEGATIVE (NEGATIVE); OCCULT BLOOD,URINE NEGATIVE (NEGATIVE); PROTEIN,URINE NEGATIVE (NEGATIVE); UROBILINOGEN,URINE 0.2 (NORMAL) E.U./dL (NORMAL)
[2019-08-01 16:45] LABS: CLARITY,URINE CLEAR (CLEAR); HCG UR QUAL NEGATIVE
[2019-08-01 16:53] LABS: AMPHETAMINE SCREEN,URINE NEGATIVE (NEGATIVE); BENZODIAZEPINES SCREEN, URINE NEGATIVE (NEGATIVE); COCAINE SCREEN URINE NEGATIVE (NEGATIVE); METHADONE SCREEN, URINE NEGATIVE (NEGATIVE); METHAMPHETAMINES SCREEN, URINE NEGATIVE (NEGATIVE); OPIATE SCREEN, URINE NEGATIVE (NEGATIVE); OXYCODONE SCREEN, URINE NEGATIVE (NEGATIVE); PROPOXYPHENE SCREEN, URINE NEGATIVE (NEGATIVE); TRICYCLIC ANTIDEPRESSANT,URINE NEGATIVE (NEGATIVE)
[2019-08-01 16:58] LABS: BASOPHILS % (AUTO) 0.4 %; EOSINOPHILS # (AUTO) 0.1 10^3/uL (0.0-0.7); EOSINOPHILS % (AUTO) 0.8 %; HGB - HEMOGLOBIN 12.2 g/dL (12.0-16.0); LYMPHOCYTES # (AUTO) 1.7 10^3/uL (1.5-3.5); LYMPHOCYTES % (AUTO) 23.1 %; MEAN CORPUSCULAR HEMOGLOBIN 26.1 pg (27.0-31.0); MEAN CORPUSCULAR HGB CONC 31.8 g/dL (32.0-36.0); MEAN CORPUSCULAR VOLUME 82.1 fL (81.0-99.0); MEAN PLATELET VOLUME 10.5 fL (7.9-10.8); MONOCYTES # (AUTO) 0.4 10^3/uL (0.0-1.0); MONOCYTES % (AUTO) 5.1 %; NEUTROPHILS % (AUTO) 70.2 %; PLT - PLATELET COUNT 304 10^3/uL (130-450); RED BLOOD COUNT 4.68 10^6/uL (4.20-5.40); RED CELL DISTRIBUTION WIDTH 13.6 % (12.0-15.0); WHITE BLOOD COUNT 7.2 x10^3/uL (4.8-10.8)
[2019-08-01 17:12] LABS: ACETAMINOPHEN < 10 ug/mL (10-30); ALBUMIN 4.5 g/dL (3.2-5.5); ALBUMIN/GLOBULIN RATIO 1.2 (1.0-2.2); ALKALINE PHOSPHATASE 83 IU/L (42-121); ALT ALANINE AMINOTRANSFERASE 33 IU/L (10-60); AST ASPARTATE AMINOTRANSFERASE 19 IU/L (10-42); BILIRUBIN,TOTAL 0.6 mg/dL (0.2-1.0); BUN - BLOOD UREA NITROGEN 11 mg/dL (6-20); CALCIUM 9.7 mg/dL (8.5-10.3); CARBON DIOXIDE - CO2 25 mmol/L (21-32); CHLORIDE 103 mmol/L (101-111); CREATININE 0.6 mg/dL (0.4-1.0); GFR - MDRD 122 (>89); GLUCOSE 178 mg/dL (70-100); LIPASE 23 U/L (22-51); SALICYLATE < 6.0 mg/dL; SODIUM 139 mmol/L (135-145); TOTAL PROTEIN 8.2 g/dL (6.7-8.2)
== END 2019-08-01 18:38 | disposition home or self-care (01) ==
LOC: ED 15:46
DX: F32.9 Major depressive disorder, single episode, unspecified (principal); R45.851 Suicidal ideations
CPT/HCPCS: 36415; 80053; 80306; 80307; 80320; 80329; 81001; 81003; 81025; 83690; 84443; 85025; 87086; 99283

== ENCOUNTER 2019-08-14 15:28 | Emergency (ER) | payer MEDICAID ==
[2019-08-14] MEDS ORDERED: cephALEXin 250 MG CAPSULE PO STA (15:51)
[2019-08-14] MEDS ORDERED: LIDOCAINE 1%-EPI 1:100000 20 ML MDV SUBQ STA (15:51)
--- NOTE | 2019-08-14 15:52 | ED Physician Documentation ---
PD HPI LOWER EXT INJURY - Stated complaint Stated Complaint: LT LEG LAC/INJ - History obtained from History obtained from: Patient - History of Present Illness PD HPI LOW EXT INJURY LOCATION: Left (24-year-old female but now transgender male with history of depression. He cut himself last night and a self-harm attempt. He has a small cut on the left forearm and a much bigger cut on the left lower extremity. He is up-to-date on tetanus. He does not feel currently suicidal.) Review of Systems Ten Systems: 10 systems reviewed and negative Nose: reports: Reviewed and negative Cardiac: reports: Reviewed and negative Respiratory: reports: Reviewed and negative PD PAST MEDICAL HISTORY - Past Medical History Past Medical History: Yes Psych: Depression - Past Surgical History Past Surgical History: Yes HEENT: Tonsil/Adenoidectomy - Present Medications Home Medications: Ambulatory Orders Medication Instructions Recorded Confirmed Sertraline HCl [Zoloft] 200 mg PO DAILY 06/01/19 06/06/19 Guanfacine HCl 08/14/19 Cephalexin [Keflex] 500 mg PO TID #15 capsule 08/15/19 metFORMIN [Glucophage] 500 mg PO BIDWM #20 tablet 08/15/19 - Allergies Allergies/Adverse Reactions: Allergies Allergy/AdvReac Type Severity Reaction Status Date / Time peanut Allergy Anaphylaxis Verified 08/14/19 19:18 - Social History Does the pt smoke?: No Smoking Status: Never smoker Does the pt drink ETOH?: Yes Does the pt have substance abuse?: No - Immunizations Immunizations are current?: Yes - POLST Patient has POLST: No PD ED PE NORMAL - Vitals Vital signs reviewed: Yes - General General: Alert and oriented X 3, No acute distress - HEENT HEENT: PERRL, EOMI - Neck Neck: Supple, no meningeal sign, No bony TTP - Cardiac Cardiac: RRR, No murmur - Respiratory Respiratory: No respiratory distress, Clear bilaterally - Abdomen Abdomen: Non tender - Back Back: No CVA TTP, No spinal TTP - Derm Derm: Normal color, Warm and dry - Extremities Extremities: Other (A lot of old and some fresh shallow cuts on the left forearm anteriorly. There is a large cut into fat measuring 8 cm over the mid thigh horizontally. On the left.) - Neuro Neuro: Alert and oriented X 3, Normal speech Results - Vitals Vitals: Vital Signs - 24 hr 08/14/19 08/14/19 08/15/19 15:55 21:59 05:43 Temperature 37.1 C 37 C Heart Rate 109 H 88 71 Respiratory 18 17 18 Rate Blood Pressure 138/92 H 145/85 H 133/79 H O2 Saturation 99 98 100 08/15/19 09:13 Temperature 36.6 C Heart Rate 101 H Respiratory 15 Rate Blood Pressure 145/82 H O2 Saturation 99 Oxygen O2 Source Room air - EKG (time done) 2020 Rate: Rate (enter#) (88) Rhythm: NSR [place]: Normal Intervals: Normal VT. No: Prolonged QT QRS: Normal Ischemia: Non specific changes. No: ST elevation c/w ischemia, ST elevation c/w repol Computer interpretation: Agree with computer - Labs Labs: Laboratory Tests 08/14/19 08/14/19 08/14/19 16:11 16:11 16:50 WBC 9.3 RBC 5.04 Hgb 13.5 Hct 41.4 MCV 82.1 MCH 26.8 L MCHC 32.6 RDW 13.4 Plt Count 348 MPV 10.8 Neut # (Auto) 6.4 Lymph # (Auto) 2.2 [place] # (Auto) 0.5 Eos # (Auto) 0.1 Baso # (Auto) 0.0 Absolute Nucleated RBC 0.00 Nucleated RBC % 0.0 Sodium 139 Potassium 3.5 Chloride 101 Carbon Dioxide 24 Anion Gap 14.0 H BUN 13 Creatinine 0.7 Estimated GFR (MDRD) 102 Glucose 298 H POC Whole Bld Glucose Calcium 10.0 Total Bilirubin 0.4 AST 25 ALT 40 Alkaline Phosphatase 80 Total Protein 8.2 Albumin 4.5 Globulin 3.7 Albumin/Globulin Ratio 1.2 Lipase 24 Urine Color Urine Clarity Urine pH Ur Specific [place] Urine Protein Urine Glucose (UA) Urine Ketones Urine Occult Blood Urine Nitrite Urine Bilirubin Urine Urobilinogen Ur Leukocyte Esterase Ur Microscopic Review Urine Culture Comments Urine HCG, Qual Salicylates < 6.0 Urine Opiates Screen NEGATIVE Ur Oxycodone Screen NEGATIVE Urine Methadone Screen NEGATIVE Ur Propoxyphene Screen NEGATIVE Acetaminophen < 10 L Ur Barbiturates Screen NEGATIVE Ur Tricyclics Screen NEGATIVE Ur Phencyclidine Scrn NEGATIVE Ur Amphetamine Screen NEGATIVE U Methamphetamines Scrn NEGATIVE U Benzodiazepines Scrn NEGATIVE Urine Cocaine Screen NEGATIVE U Cannabinoids Screen NEGATIVE Ethyl Alcohol < 5.0 10/01/2808/15/19 08/15/19 16:50 00:08 04:24 WBC RBC Hgb Hct MCV MCH MCHC RDW Plt Count MPV Neut # (Auto) Lymph # (Auto) [place] # (Auto) Eos # (Auto) Baso # (Auto) Absolute Nucleated RBC Nucleated RBC % Sodium Potassium Chloride Carbon Dioxide Anion Gap BUN Creatinine Estimated GFR (MDRD) Glucose POC Whole Bld Glucose 164 H 189 H Calcium Total Bilirubin AST ALT Alkaline Phosphatase Total Protein Albumin Globulin Albumin/Globulin Ratio Lipase Urine Color YELLOW Urine Clarity CLEAR Urine pH 5.0 Ur Specific [place] 1.020 Urine Protein NEGATIVE Urine Glucose (UA) >=1000 H Urine Ketones NEGATIVE Urine Occult Blood TRACE-LYSE Urine Nitrite NEGATIVE Urine Bilirubin NEGATIVE Urine Urobilinogen 0.2 (NORMAL) Ur Leukocyte Esterase NEGATIVE Ur Microscopic Review NOT INDICATED Urine Culture Comments NOT INDICATED Urine HCG, Qual NEGATIVE Salicylates Urine Opiates Screen Ur Oxycodone Screen Urine Methadone Screen Ur Propoxyphene Screen Acetaminophen Ur Barbiturates Screen Ur Tricyclics Screen Ur Phencyclidine Scrn Ur Amphetamine Screen U Methamphetamines Scrn U Benzodiazepines Scrn Urine Cocaine Screen U Cannabinoids Screen Ethyl Alcohol 08/15/19 06:30 WBC RBC Hgb Hct MCV MCH MCHC RDW Plt Count MPV Neut # (Auto) Lymph # (Auto) [place] # (Auto) Eos # (Auto) Baso # (Auto) Absolute Nucleated RBC Nucleated RBC % Sodium Potassium Chloride Carbon Dioxide Anion Gap BUN Creatinine Estimated GFR (MDRD) Glucose POC Whole Bld Glucose 166 H Calcium Total Bilirubin AST ALT Alkaline Phosphatase Total Protein Albumin Globulin Albumin/Globulin Ratio Lipase Urine Color Urine Clarity Urine pH Ur Specific [place] Urine Protein Urine Glucose (UA) Urine Ketones Urine Occult Blood Urine Nitrite Urine Bilirubin Urine Urobilinogen Ur Leukocyte Esterase Ur Microscopic Review Urine Culture Comments Urine HCG, Qual Salicylates Urine Opiates Screen Ur Oxycodone Screen Urine Methadone Screen Ur Propoxyphene Screen Acetaminophen Ur Barbiturates Screen Ur Tricyclics Screen Ur Phencyclidine Scrn Ur Amphetamine Screen U Methamphetamines Scrn U Benzodiazepines Scrn Urine Cocaine Screen U Cannabinoids Screen Ethyl Alcohol Procedures - Laceration (location) L thigh Length in cm: 8 Wound type: Linear, Into subcut fat Neurovascular status: Sensory intact, Motor intact, Vascular intact Anesthesia: Lidocaine 1% with epi Wound Preparation: Irrigated copiously NS Skin layer closure: [place] Other: Tetanus UTD Complexity: Simple PD MEDICAL DECISION MAKING - ED course ED course: 24-year-old presents with self-inflicted wounds, the one on the thigh is pretty deep and did require closure noting its somewhat older status. He was up-to-date on tetanus. We also gave him a dose of antibiotics given the age of the wound. Probably does not need long-term antibiotic treatment. Social work saw him, he was just seen by the DCR 2 weeks ago and there was some questions left open and now with this repeat attempt this is very concerning. Patient was not really too concerned for feeling like he needed inpatient treatments. That may be think he was probably a not a great candidate for voluntary treatments but felt like he probably needed a repeat DCR evaluation. The DCR saw him and felt he was detainable but the blood sugars became a little bit of a sticking point with the accepting facility. Looking back at the old blood sugars, this is the highest its been, but it usually been ranging between 180 and 250. He probably is a type II diabetic and is started on metformin. Departure - Departure Disposition: [facility]/Unit DC/Xfer Clinical Impression: Laceration, Injury, self-inflicted, Suicidal ideation, Hyperglycemia Condition: Stable Prescriptions: Cephalexin [Keflex] 500 mg PO TID #15 capsule metFORMIN [Glucophage] 500 mg PO BIDWM #20 tablet Comments: Mk should be removed by your doctor in 7-10 days. Discharge Date/Time: 08/15/19 09:38
[2019-08-14 16:19] LABS: BASOPHILS % (AUTO) 0.4 %; EOSINOPHILS # (AUTO) 0.1 10^3/uL (0.0-0.7); EOSINOPHILS % (AUTO) 0.9 %; HGB - HEMOGLOBIN 13.5 g/dL (12.0-16.0); LYMPHOCYTES # (AUTO) 2.2 10^3/uL (1.5-3.5); LYMPHOCYTES % (AUTO) 23.3 %; MEAN CORPUSCULAR HEMOGLOBIN 26.8 pg (27.0-31.0); MEAN CORPUSCULAR HGB CONC 32.6 g/dL (32.0-36.0); MEAN CORPUSCULAR VOLUME 82.1 fL (81.0-99.0); MEAN PLATELET VOLUME 10.8 fL (7.9-10.8); MONOCYTES # (AUTO) 0.5 10^3/uL (0.0-1.0); MONOCYTES % (AUTO) 5.8 %; NEUTROPHILS # (AUTO) 6.4 10^3/uL (1.5-6.6); NEUTROPHILS % (AUTO) 69.2 %; PLT - PLATELET COUNT 348 10^3/uL (130-450); RED BLOOD COUNT 5.04 10^6/uL (4.20-5.40); RED CELL DISTRIBUTION WIDTH 13.4 % (12.0-15.0); WHITE BLOOD COUNT 9.3 x10^3/uL (4.8-10.8)
[2019-08-14 16:41] LABS: ACETAMINOPHEN < 10 ug/mL (10-30); ALBUMIN 4.5 g/dL (3.2-5.5); ALBUMIN/GLOBULIN RATIO 1.2 (1.0-2.2); ALKALINE PHOSPHATASE 80 IU/L (42-121); ALT ALANINE AMINOTRANSFERASE 40 IU/L (10-60); AST ASPARTATE AMINOTRANSFERASE 25 IU/L (10-42); BILIRUBIN,TOTAL 0.4 mg/dL (0.2-1.0); BUN - BLOOD UREA NITROGEN 13 mg/dL (6-20); CARBON DIOXIDE - CO2 24 mmol/L (21-32); CHLORIDE 101 mmol/L (101-111); CREATININE 0.7 mg/dL (0.4-1.0); GFR - MDRD 102 (>89); GLUCOSE 298 mg/dL (70-100); LIPASE 24 U/L (22-51); SALICYLATE < 6.0 mg/dL; SODIUM 139 mmol/L (135-145); TOTAL PROTEIN 8.2 g/dL (6.7-8.2)
[2019-08-14 17:00] LABS: MUDS CUTOFF CONCENTRATIONS CUTOFF CONC BELOW:
[2019-08-14 17:05] LABS: BILIRUBIN,URINE NEGATIVE (NEGATIVE); GLUCOSE, URINE (UA) >=1000 mg/dL (NEGATIVE); KETONES,URINE (UA) NEGATIVE (NEGATIVE); LEUKOCYTE ESTERASE, URINE NEGATIVE (NEGATIVE); NITRITE,URINE NEGATIVE (NEGATIVE); OCCULT BLOOD,URINE TRACE-LYSE (NEGATIVE); PROTEIN,URINE NEGATIVE (NEGATIVE); UROBILINOGEN,URINE 0.2 (NORMAL) E.U./dL (NORMAL)
[2019-08-14 17:08] LABS: CLARITY,URINE CLEAR (CLEAR)
[2019-08-14 17:09] LABS: HCG UR QUAL NEGATIVE
[2019-08-14 17:16] LABS: AMPHETAMINE SCREEN,URINE NEGATIVE (NEGATIVE); BENZODIAZEPINES SCREEN, URINE NEGATIVE (NEGATIVE); COCAINE SCREEN URINE NEGATIVE (NEGATIVE); METHADONE SCREEN, URINE NEGATIVE (NEGATIVE); METHAMPHETAMINES SCREEN, URINE NEGATIVE (NEGATIVE); OPIATE SCREEN, URINE NEGATIVE (NEGATIVE); OXYCODONE SCREEN, URINE NEGATIVE (NEGATIVE); PROPOXYPHENE SCREEN, URINE NEGATIVE (NEGATIVE); TRICYCLIC ANTIDEPRESSANT,URINE NEGATIVE (NEGATIVE)
[2019-08-14] MEDS ORDERED: metFORMIN 500 MG TABLET PO STA (21:36)
[2019-08-14] MEDS ORDERED: SERTRALINE 50 MG TABLET PO STA (21:37)
[2019-08-14] MEDS ORDERED: LORazepam 1 MG TABLET PO STA (21:39)
[2019-08-15 09:14] VITALS: BP 145/82
== END 2019-08-15 09:38 ==
LOC: ED 15:28
DX: S71.112A Laceration without foreign body, left thigh, initial encounter (principal); S51.812A Laceration without foreign body of left forearm, initial encounter; X78.1XXA Intentional self-harm by knife, initial encounter; F32.9 Major depressive disorder, single episode, unspecified; R45.851 Suicidal ideations; R73.9 Hyperglycemia, unspecified
CPT/HCPCS: 12004; 36415; 80053; 80306; 80307; 80320; 80329; 81003; 81025; 83690; 85025; 93005; 99285; A9270; J8499; 81001; 87086

== ENCOUNTER 2019-08-29 15:48 | Outpatient (CLI) | payer MEDICAID ==
[2019-08-29 16:23] LABS: HB2 TOTAL 12.8 g/dL; HEMOGLOBIN A1C 0.87 g/dL; HEMOGLOBIN A1C % 8.4 % (4.6-6.2)
== END 2019-08-29 15:49 | disposition home or self-care (01) ==
LOC: LAB 15:48
PROVIDERS: ATTEND Nurse Practitioner
DX: R73.9 Hyperglycemia, unspecified (principal)
CPT/HCPCS: 36415; 83036

== ENCOUNTER 2019-09-18 16:07 | Emergency (ER) | payer MEDICAID ==
--- NOTE | 2019-09-18 16:30 | ED Physician Documentation ---
PD HPI MHE - Stated complaint Stated Complaint: SI - Chief complaint Chief Complaint: MHE - History obtained from History obtained from: Patient (This is a transgender young man who presents accompanied by someone from the [facility] with suicidal ideation. No active ideation now but [place]. No alcohol or drug use. Last hospitalization was about a month ago.) Review of Systems Constitutional: reports: Reviewed and negative Cardiac: reports: Reviewed and negative Respiratory: reports: Reviewed and negative PD PAST MEDICAL HISTORY - Past Medical History Psych: Depression - Past Surgical History Past Surgical History: Yes HEENT: Tonsil/Adenoidectomy - Present Medications Home Medications: Ambulatory Orders Medication Instructions Recorded Confirmed Sertraline HCl [Zoloft] 200 mg PO DAILY 06/01/19 06/06/19 Guanfacine HCl 08/14/19 Cephalexin [Keflex] 500 mg PO TID #15 capsule 08/15/19 metFORMIN [Glucophage] 500 mg PO BIDWM #20 tablet 08/15/19 - Allergies Allergies/Adverse Reactions: Allergies Allergy/AdvReac Type Severity Reaction Status Date / Time peanut Allergy Anaphylaxis Verified 08/14/19 19:18 - Social History Does the pt smoke?: No Smoking Status: Never smoker Does the pt drink ETOH?: Yes Does the pt have substance abuse?: No - Immunizations Immunizations are current?: Yes - POLST Patient has POLST: No PD ED PE NORMAL - Vitals Vital signs reviewed: Yes - General General: Alert and oriented X 3, No acute distress - HEENT HEENT: PERRL, EOMI - Neck Neck: Supple, no meningeal sign, No bony TTP - Cardiac Cardiac: RRR, No murmur - Respiratory Respiratory: No respiratory distress, Clear bilaterally - Abdomen Abdomen: Non tender - Back Back: No CVA TTP, No spinal TTP - Derm Derm: Normal color, Warm and dry - Extremities Extremities: Other (Deep recent but hemostatic cuts on the left thigh) - Neuro Neuro: Alert and oriented X 3, Normal speech - Psych Psych: Normal mood, Normal affect Results - Vitals Vitals: Vital Signs - 24 hr 09/18/19 09/18/19 16:19 18:35 Temperature 37.1 C Heart Rate 100 110 H Respiratory 18 20 Rate Blood Pressure 136/79 H 142/89 H O2 Saturation 96 98 Oxygen O2 Source Room air PD MEDICAL DECISION MAKING - ED course ED course: 24-year-old with resolved suicidal ideation. Seen by social work and contracted for safety. He declined voluntary hospitalization. Going home with his supportive roommate he will keep an eye on him. Departure - Departure Disposition: Home, Self Care Clinical Impression: Depression Qualifiers: Depression Type: major depressive disorder Major depression recurrence: recurre nt Active/Remission status: currently active Major depression episode severity: severe Psychotic features: without psychotic features Qualified Code(s): F33.2 - Major depressive disorder, recurrent severe without psychotic features Condition: Good Record reviewed to determine appropriate education?: Yes Instructions: ED Depression Comments: Return anytime for new or worsening symptoms. Follow-up with your counselor at [facility], next available appointment. Continue current medications.
[2019-09-18 18:36] VITALS: BP 142/89
== END 2019-09-18 18:59 | disposition home or self-care (01) ==
LOC: ED 16:07
DX: F33.2 Major depressive disorder, recurrent severe without psychotic features (principal); R45.851 Suicidal ideations
CPT/HCPCS: 99283

== ENCOUNTER 2019-09-21 12:25 | Emergency (ER) | payer MEDICAID ==
[2019-09-21] MEDS ORDERED: LIDOCAINE 2% 10 ML MDV SUBQ STA (14:07)
--- NOTE | 2019-09-21 14:08 | ED Physician Documentation ---
PD HPI UPPER EXT INJURY - Stated complaint Stated Complaint: LEFT ARM INJURY - Chief complaint Chief Complaint: Laceration - History obtained from History obtained from: Patient - History of Present Illness Location: Left, Arm Type of injury: Other (Self-inflicted cutting with a box knife) Where injury occurred: Home Timing - onset: Today Associated symptoms: Numbness (To the middle and ring finger). No: Weakness Recently seen: Emergency Dept (For an unrelated issue), Not recently seen - Additonal information Additional information: There is a 24-year-old patient who presents with complaints of having cut his left arm with a box knife intentionally but not in the suicide attempt. He has a long-standing history of cutting. His last tetanus vaccine was in September. He complains of some numbness and tingling to the middle and ring finger. He is right-handed. Review of Systems Skin: reports: Laceration (s) Neurologic: reports: Other (Tingling) PD PAST MEDICAL HISTORY - Past Medical History Psych: Depression - Past Surgical History Past Surgical History: Yes HEENT: Tonsil/Adenoidectomy - Present Medications Home Medications: Ambulatory Orders Medication Instructions Recorded Confirmed Sertraline HCl [Zoloft] 200 mg PO DAILY 06/01/19 06/06/19 Guanfacine HCl 08/14/19 Cephalexin [Keflex] 500 mg PO TID #15 capsule 08/15/19 metFORMIN [Glucophage] 500 mg PO BIDWM #20 tablet 08/15/19 - Allergies Allergies/Adverse Reactions: Allergies Allergy/AdvReac Type Severity Reaction Status Date / Time peanut Allergy Anaphylaxis Verified 08/14/19 19:18 - Social History Does the pt smoke?: No Smoking Status: Never smoker Does the pt drink ETOH?: Yes Does the pt have substance abuse?: No - Immunizations Immunizations are current?: Yes - POLST Patient has POLST: No PD ED PE NORMAL - Vitals Vital signs reviewed: Yes - General General: Alert and oriented X 3, No acute distress, Well developed/nourished - HEENT HEENT: Atraumatic - Respiratory Respiratory: No respiratory distress - Derm Derm: Normal color, Warm and dry, Other (There is an 9 cm laceration on the proximal volar forearm. This is a pressure bandage on it that soaked with blood. She has equal radial And ulnar pulses. Capillary refills less than 2 seconds in all 5 digits. Two-point discrimination is intact in each digit and she is able to flex at the DIP PIP and MCP joints of all of the fingers.) - Neuro Neuro: Alert and oriented X 3, enforcement safety officer 2-12 intact, No motor deficit, No sensory deficit Results - Vitals Vitals: Vital Signs - 24 hr 09/21/19 12:31 Temperature 36.9 C Heart Rate 95 Respiratory 16 Rate Blood Pressure 133/77 H O2 Saturation 98 Oxygen O2 Source Room air Procedures - Laceration (location) Upper extremity left Proximal Length in cm: 9 Wound type: Linear Neurovascular status: Sensory intact, Motor intact, Vascular intact Tendon involvement: Tendon intact. No: Tendon Injury Anesthesia: Lidocaine 2% Wound Preparation: Hibiclens, Irrigated copiously NS, Wound explored, To the base, Other (No vascular injury was identified.). No: Debrided extensively, FB identified Skin layer closure: Nylon, Running, Size #-0 - enter number (4) Other: Patient tolerated well, No complications, Neurovascular intact, Dressing applied, Tetanus UTD Complexity: Simple PD MEDICAL DECISION MAKING - ED course Complexity details: d/w patient ED course: Bleeding was controlled after the wound was sutured with a running suture. Patient tolerated the procedure well. He is instructed on wound care. Suture removal in 10 to 12 days. Follow-up sooner if any signs of infection. Departure - Departure Disposition: 01 Home, Self Care Clinical Impression: Laceration of forearm Qualifiers: Encounter type: initial encounter Laterality: right Qualified Code(s): S51.811A - Laceration without foreign body of right forearm, initial encounter Condition: Good Instructions: ED Laceration All Follow-Up: Chica Henriquez ARNP, [employer]IST[facility] [Primary Care Provider] - Comments: May wash the wound but keep it covered during the daytime. Its okay to leave the bandage off at night when you go to bed. He can apply a thin layer of antibiotic ointment on it. Suture should be removed in 10 to 14 days. Follow- up if any signs of infection to include spreading redness, purulent drainage, fever or other problems arise.
[2019-09-21 15:23] VITALS: BP 147/81
== END 2019-09-21 15:23 | disposition home or self-care (01) ==
LOC: ED 12:25
DX: S51.812A Laceration without foreign body of left forearm, initial encounter (principal); X78.8XXA Intentional self-harm by other sharp object, initial encounter; Y92.009 Unspecified place in unspecified non-institutional (private) residence as the place of occurrence of the external cause
CPT/HCPCS: 12004; 99281